=== PATIENT | female | born 1990 | race Two or more races ===

== ENCOUNTER 2020-04-02 14:37 | Inpatient (IN) | payer OTHER ==
[~2020-04-02] VITALS: Ht 162.6 cm; Wt 73.9 kg
[2020-04-12] MEDS ORDERED: PRENATAL CAPLE1 EAC1 PO (08:07)
[2020-04-12] MEDS ORDERED: FOLIC ACID0.8 M1 PO (08:08)
== END 2020-04-14 14:06 | DRG 807 ==
LOC: LDR 04-12 07:12 → OB/GYN 04-12 22:04
PROVIDERS: ADMIT Obstetrics & Gynecology; ATTEND Obstetrics & Gynecology
PROC: 10E0XZZ Delivery of Products of Conception, External Approach (ICD-10-PCS; principal; 2020-04-12)
PROC: 0KQM0ZZ Repair Perineum Muscle, Open Approach (ICD-10-PCS; 2020-04-12)
PROC: 4A0HXFZ Measurement of Products of Conception, Cardiac Rhythm, External Approach (ICD-10-PCS; 2020-04-12)
DX: O70.1 Second degree perineal laceration during delivery (principal); Z37.0 Single live birth; Z3A.39 39 weeks gestation of pregnancy